=== PATIENT | male | born 1985 | race Caucasian/White ===

== ENCOUNTER 2016-06-17 02:10 | Emergency (ER) | payer SELFPAY ==
[2016-06-17 02:30] VITALS: TEMP 97.9; BMI 24.3
--- NOTE | 2016-06-17 02:39 | EDPRACDOC ---
- General Information Chief Complaint: Male Urogenital Problems Stated Complaint: SCROTAL PAIN Time Seen by Provider: 06/17/16 02:25 Information Source: Patient Home Medications: Home Medications Doxycycline Hyclate 100 mg PO BID #20 tablet 05/12/16 Oxycodone Immediate Release [Oxycodone Immediate Release (OxyIR)] 5 - 15 mg PO Q4H PRN #25 tab 05/12/16 Allergies/Adverse Reactions: Allergies Allergy/AdvReac Type Severity Reaction Status Date / Time morphine Allergy Rash-Genera Verified 06/17/16 02:30 lized - History of Present Illness HPI: HERE FOR SCROTAL PAIN FOR 3 WEEKS. HERE LATE APRIL FOR SAME AND US NEGATIVE. HERE WITH GIRLFRIEND. SHE IS A PATIENT HERE TOO FOR VAGINAL DC. NO PAIN CURRENTLY. PAIN WORSE SOMETIMES WITH MOVEMENT. PENILE DC. GIRLFRIEND HERE FOR SAME. PT LATER DEMANDED ANABEL 5MG. WANTED VICODIN. SWEARING AT ME AND THROWING STUFF IN ROOM 2B. I TOLD HIM WE WANT TO HELP, BUT HE CANNOT SWEAR AT ME OR STAFF. STATED WE ARE NOT HELPING HIM. AGAIN, WE EXPLAINED THAT HE RECEIVED A INJECTION FOR PAIN, ABX INJECTION, AND PO ABX FOR INFECTION. I FELT VERY THREATENED. NURSE WAS GOING TO CALL SECURITY BUT PT LEFT. HX OF SUBSTANCE ABUSE AND ETOH ABUSE PER OLD RECORDS. HX UDS IN RECORDS DOCUMENTS HX OF AMPHETAMINES, METHADONE, COCAINE, AND BENZO'S. STATED LAST TIME HE HAD IM INJECTION HE COULD NOT WALK. GAVE HIM A FEW VICODIN AND KETOROLAC FOR INFLAMMATION. REVIEWED HOW TO TAKE. Onset: 2 days Urinary Pain Location: Reports: None Symptom Onset: Reports: Gradual Pain Severity: Mild Pain Quality: Reports: Aching History of: Reports: None Oral Intake: Normal Urinary Output: Normal Associated Signs and Symptoms: Reports: None ED Past Medical History - History Reviewed Yes Nurses notes reviewed and agree except as marked - Patient Medical History Psychological History: Denies: Depression - Social Medical History Smoking Status: Heavy tobacco smoker (5 or more cigarettes/day or daily pipe/ cigar) EDM Review of Systems - Review of Systems ROS Negative Except as Marked: Yes All systems reviewed and were negative except as marked - Physical Exam Constitutional: Alert (Awake), No apparent distress Oriented to: Time, Person, Place Last recorded Vital Signs: Last Vital Signs Temp 97.9 F 06/17/16 02:22 Pulse 108 06/17/16 02:22 Resp 16 06/17/16 02:22 BP 127/68 06/17/16 02:22 Pulse Ox 98 06/17/16 02:22 Oxygen Pulse Oxygen Saturation 98 O2 Device Oxygen Flow Rate Fraction of Inspired Oxygen ( FIO2) - HEENT Head: Normal ( normocephalic) Eye Exam: Normal (PERRL, EOMI, Sclera white) Oropharynx: Normal (Pharynx:Moist without exudate,Gums-no swelling) ENT EAC: Normal TMJ: Normal Nose: No Symptoms Reported (septum midline) Neck: Normal (FROM, trachea at midline) - Respiratory/Cardiovascular Respiratory: Normal - CTA (BBS clear to auscultation without adventitious sounds ) Cardiovascular: Normal (RRR without murmur, gallop or rub) - GI Auscultation: Normal (NABS) Palpation: Normal (Soft,No rebound or guarding, non distended) Tenderness: Non tender Jolley's Sign: Negative - Male Genitalia: Bilateral: Normal Scrotum: Bilateral: Normal - Musculoskeletal Back: Normal (Non-Tender) Extremities: Normal (Normal tone, Pulses 2+ No cyanosis or edema, FROM) - Integumentary Skin: Normal, Warm, Dry Lymphatics: Normal (no adenopathy) - Neurologic Memory Impaired: Normal Motor Function: Normal (Normal tone, Pulses 2+ No cyanosis or edema, FROM) Cranial Nerve: Normal (CN II-X11 intact sensation, strength 5/5) Cerebellar: Normal Mood Description: Normal Perception: Normal Decision Time to Discharge: 03:30 - Departure Yes I personally saw and evaluated the patient. Disposition: Home Condition: Good Final Diagnosis: CHRONIC SCROTAL PAIN, PENILE DC Instructions: Pelvic Pain in Men (ED) Education/Counseling Given To: Patient Education/Counseling Given Regarding: Diagnosis, Treatment, Prognosis Referrals: None,No Provider [Primary Care Provider] - One Week Benjamin Moore MD [Staff Physician] - One Week Additional Instructions: MOTRIN NEEDED FOR PAIN
[2016-06-17 02:56] LABS: LEUKOCYTES/URINE NEG (NEGATIVE); NITRITE/URINE NEG (NEGATIVE); URINE OCCULT BLOOD NEG (NEG/TRACE)
[2016-06-17] MEDS ORDERED: KETOROLAC TROMETHAMINE 60 MG/2 ML SDV IM ONE (02:56)
[2016-06-17] MEDS ORDERED: AZITHROMYCIN 1 GM ORAL POWDER PACKET PO ONE (03:28)
[2016-06-17] MEDS ORDERED: CEFTRIAXONE 1 GM VIAL IM ONE (03:28)
[2016-06-17 04:36] VITALS: BP 124/66; PULSE 89
== END 2016-06-17 04:23 | disposition home or self-care (01) ==
LOC: ED 02:10
DX: N50.82 Scrotal pain (principal); R36.9 Urethral discharge, unspecified
CPT/HCPCS: 81001; 96372; 99283; J0696; J1885; J3490

== ENCOUNTER 2016-06-27 06:07 | Emergency (ER) | payer SELFPAY ==
[2016-06-27 06:07] VITALS: BMI 24.3
[2016-06-27 06:23] VITALS: TEMP 98
[2016-06-27] MEDS ORDERED: OXYCODONE HCL 5 MG TABLET PO ONE (06:31)
[2016-06-27] MEDS ORDERED: CEFTRIAXONE 250 MG VIAL IM ONE (06:31)
[2016-06-27] MEDS ORDERED: AZITHROMYCIN 250 MG TAB PO ONE (06:32)
[2016-06-27] MEDS ORDERED: LIDOCAINE 1% 2 ML (METHYLPARABEN FREE) ONE (06:43)
--- NOTE | 2016-06-27 07:28 | EDPRACDOC ---
- General Information Chief Complaint: Male Urogenital Problems Stated Complaint: MALE AREA PAIN Time Seen by Provider: 06/27/16 06:25 Information Source: Patient Mode Of Arrival: Car Home Medications: Home Medications Doxycycline Hyclate 100 mg PO BID #20 tablet 06/27/16 Oxycodone HCl [Roxicodone] 5 mg PO Q4 PRN #5 tablet 06/27/16 Allergies/Adverse Reactions: Allergies Allergy/AdvReac Type Severity Reaction Status Date / Time morphine Allergy Rash-Genera Verified 06/27/16 06:23 lized - History of Present Illness Onset: 4 DAYS HPI: PT WITH LEFT TESTICLE PAIN, SEVERE FOR 4 DAYS. DYSURIA. DECREASED EJACULATORY PRESSURE. SIMILAR SYMPTOMS ABOUT A MONTH AGO, DIAGNOSED WITH STI , GIRLFRIEND ALSO WITH SAME DIAGNOSIS. BOTH TREATED. PT ALSO WITH LEFT LOWER TOOTH PAIN. NO ABD PAIN, NO FEVER. ED Past Medical History - Patient Medical History Psychological History: Denies: Depression - Social Medical History Smoking Status: Heavy tobacco smoker (5 or more cigarettes/day or daily pipe/ cigar) EDM Review of Systems - Review of Systems ROS Negative Except as Marked: Yes All systems reviewed and were negative except as marked Throat: No Symptoms Reported Mouth: Tooth Pain Respiratory: No Symptoms Reported Cardiovascular: No Symptoms Reported Genitourinary: Dysuria. negative: Discharge Neurological: No Symptoms Reported Musculoskeletal: No Symptoms Reported Integumentary: No Symptoms Reported - Physical Exam Constitutional: Alert (Awake), No apparent distress Oriented to: Time, Person, Place Last recorded Vital Signs: Last Vital Signs Temp 98 F 06/27/16 06:15 Pulse 99 06/27/16 06:15 Resp 20 06/27/16 06:15 BP 155/73 06/27/16 06:15 Pulse Ox 99 06/27/16 06:15 Oxygen Pulse Oxygen Saturation 99 O2 Device Room Air Oxygen Flow Rate Fraction of Inspired Oxygen ( FIO2) - HEENT Head: Normal ( normocephalic) Eye Exam: Normal (PERRL, EOMI, Sclera white) Oropharynx: Normal (Pharynx:Moist without exudate,Gums-no swelling), Other ( GENERALIZED POOR DENTITION, SOME NECROTIC. NUMEROUS CARIES) Nose: No Symptoms Reported (septum midline) Neck: Normal (FROM, trachea at midline) - Respiratory/Cardiovascular Respiratory: Normal - CTA (BBS clear to auscultation without adventitious sounds ) Cardiovascular: Normal (RRR without murmur, gallop or rub) - GI Auscultation: Normal (NABS) Palpation: Normal (Soft,No rebound or guarding, non distended) Tenderness: Non tender Jolley's Sign: Negative - Musculoskeletal Back: Normal (Non-Tender) Extremities: Normal (Normal tone, Pulses 2+ No cyanosis or edema, FROM) - Integumentary Skin: Normal, Warm, Dry Lymphatics: Normal (no adenopathy) - Neurologic Memory Impaired: Normal Motor Function: Normal (Normal tone, Pulses 2+ No cyanosis or edema, FROM) Cranial Nerve: Normal (CN II-X11 intact sensation, strength 5/5) Cerebellar: Normal Mood Description: Normal Perception: Normal ED Penile Problem Exam - Genitals Shaft: Normal Epididymis: Right: Normal, Left: Tender Testicle: Bilateral: Normal Decision Time to Discharge: 09:27 - Departure Yes I personally saw and evaluated the patient. Disposition: Home Condition: Stable Final Diagnosis: Tooth abscess, Acute epididymitis, Drug-seeking behavior Instructions: Testicle Pain (ED) Education/Counseling Given To: Patient Education/Counseling Given Regarding: Diagnosis Referrals: None,No Provider [Primary Care Provider] - One Week Prescriptions: New Doxycycline Hyclate 100 mg PO BID #20 tablet Oxycodone HCl [Roxicodone] 5 mg PO Q4 PRN #5 tablet PRN Reason: Pain
[2016-06-27 08:51] VITALS: BP 123/65; PULSE 92
--- NOTE | 2016-06-27 09:20 | DIRPT ---
CLINICAL DATA: Testicular pain beginning 2 days ago. EXAM: SCROTAL ULTRASOUND DOPPLER ULTRASOUND OF THE TESTICLES TECHNIQUE: Complete ultrasound examination of the testicles, epididymis, and other scrotal structures was performed. Color and spectral Doppler ultrasound were also utilized to evaluate blood flow to the testicles. COMPARISON: 05/12/2016 FINDINGS: Right testicle Measurements: 4.7 x 1.9 x 2.7 cm. No mass or microlithiasis visualized. Left testicle Measurements: 4.4 x 2.0 x 2.8 cm. No mass or microlithiasis visualized. Right epididymis: Normal in size and appearance. Left epididymis: Normal in size and appearance. Hydrocele: None visualized. Varicocele: None visualized. Borderline enlargement of left-sided veins on the prior ultrasound is no longer seen. Pulsed Doppler interrogation of both testes demonstrates normal low resistance arterial and venous waveforms bilaterally. IMPRESSION: Unremarkable scrotal ultrasound. Electronically Signed By: Casimiro Trujillo M.D. On: 06/27/2016 09:17
[2016-06-27 09:27] LABS: AMORPHOUS 3+; LEUKOCYTES/URINE NEG (NEGATIVE); NITRITE/URINE NEG (NEGATIVE); URINE OCCULT BLOOD NEG (NEG/TRACE)
== END 2016-06-27 10:00 | disposition home or self-care (01) ==
LOC: ED 06:07
DX: K04.7 Periapical abscess without sinus (principal); N45.1 Epididymitis; Z76.5 Malingerer [conscious simulation]
CPT/HCPCS: 76870; 81001; 87086; 93975; 96372; 99283; J0696; J2001; J3490